=== PATIENT | male | born 1930 | race Caucasian/White ===

== ENCOUNTER 2016-06-19 06:59 | Day surgery (SDC) | payer MEDICARE, OTHER ==
[2016-06-19] MEDS ORDERED: Lactated Ringers 1,000 ML IV SCH (07:15)
[2016-06-19] MEDS ORDERED: Propofol 200 MG/20 ML SDV IV ONE (08:50)
[2016-06-19] MEDS ORDERED: Midazolam 1 MG/ML 2 ML SDV IV ONE (08:50)
[2016-06-19] MEDS ORDERED: Simethicone Drops 40 MG/0.6 ML 30 ML Bottle ONE (09:03)
[2016-06-19 10:24] VITALS: BP 134/69
--- NOTE | 2016-06-19 17:56 | OR ---
DATE OF OPERATION: 06/19/2016 SURGEON: Germán Hudson MD PROCEDURE PERFORMED: Colonoscopy with cold forceps biopsy. PREOPERATIVE DIAGNOSIS: Personal history of colon polyps. POSTOPERATIVE DIAGNOSES: As follows: 1. Prostate nodule. 2. Diffuse diverticulosis. 3. Transverse colon polyp. INDICATIONS FOR PROCEDURE: This is an extremely healthy 85-year-old, white male, with a personal history of colon polyps who presents for followup colonoscopy. He was offered and accepted the same. DESCRIPTION OF OPERATION: After an excellent IV sedation was administered, a digital rectal exam was performed. The patient does have a distinct nodule on the middle of his prostate. It was approximately a cm in diameter; otherwise, the rectal exam was unremarkable. The flexible colonoscope was then inserted and advanced to the cecum. The prep was excellent. The following findings were noted: Ascending colon, moderate diverticulosis. Transverse colon, moderate diverticulosis; and then the distal transverse colon, the patient does have a small polypoid lesion, biopsied with cold biopsy forceps. Descending colon, moderate diverticulosis. Sigmoid, moderate diverticulosis. Rectum, unremarkable. The colon was deflated as the scope was removed. The patient tolerated the procedure well and was taken to the recovery room in good condition. /[id number] RACHEL/ABEL
== END 2016-06-19 10:18 | disposition home or self-care (01) ==
LOC: FB.SDS 06:59
PROVIDERS: ATTEND Surgery
PROC: 0DBL8ZX Excision of Transverse Colon, Via Natural or Artificial Opening Endoscopic, Diagnostic (ICD-10-PCS; principal; 2016-06-19)
DX: D12.3 Benign neoplasm of transverse colon (principal); N40.2 Nodular prostate without lower urinary tract symptoms; K57.30 Diverticulosis of large intestine without perforation or abscess without bleeding; I10 Essential (primary) hypertension; Z79.82 Long term (current) use of aspirin; Z79.899 Other long term (current) drug therapy; Z87.891 Personal history of nicotine dependence
CPT/HCPCS: 00902; 45380; 88305; A9270; J2250; J2704; J7120

== ENCOUNTER 2017-10-14 09:36 | Emergency (ER) | payer MEDICARE, OTHER ==
[2017-10-14] MEDS ORDERED: Sodium Chloride 0.9% 10 ML Syringe FLUSH PRN (10:05)
[2017-10-14] MEDS ORDERED: fentaNYL 100 MCG/2 ML SDV IVPUSH ONE ×2 (10:09→10:45)
--- NOTE | 2017-10-14 10:15 | EDM.PDOC ---
ED HPI GENERAL MEDICAL PROBLEM - General Chief Complaint: Lower Extremity Injury/Pain Stated Complaint: RT ANKLE Time Seen by Provider: 10/14/17 10:03 Source of Information: Reports: Patient History Limitations: Reports: No Limitations - History of Present Illness INITIAL COMMENTS - FREE TEXT/NARRATIVE: Patient lost his balance while dressing this morning, twisted right ankle, complains of ankle pain. Last meal 0740 today. Onset: Today, Sudden Duration: Hour(s): (1) Location: Reports: Lower Extremity, Right Severity: Moderate R ankle Pain Score (Numeric/FACES): 9 - Related Data Allergies Allergy/AdvReac Type Severity Reaction Status Date / Time No Known Allergies Allergy Verified 10/14/17 11:11 Home Meds: Home Meds Aspirin 81 mg PO DAILY 06/18/16 [History] Calcium Carbonate/Vitamin D3 [Calcium Carb 500 MG] 1 ea PO DAILY 06/18/16 [ History] Lisinopril/Hydrochlorothiazide [Lisinopril-Hctz 20-12.5 mg Tab] 1 ea PO DAILY [History] Multivitamin with Minerals [Multiple Vitamin] 1 ea PO DAILY 06/18/16 [History] Lactobacillus Combination No.4 [Probiotic] 1 each PO DAILY 10/14/17 [History] Latanoprost 1 drop EYEBOTH BEDTIME 10/14/17 [History] Past Medical History HEENT History: Reports: Impaired Vision Cardiovascular History: Reports: Hypertension. Denies: CAD Respiratory History: Reports: None Gastrointestinal History: Reports: Colon Polyp Genitourinary History: Reports: None Musculoskeletal History: Reports: None Neurological History: Reports: None Psychiatric History: Reports: None Endocrine/Metabolic History: Reports: None Hematologic History: Reports: None Immunologic History: Reports: None Oncologic (Cancer) History: Reports: None Dermatologic History: Reports: None - Infectious Disease History Infectious Disease History: Reports: Chicken Pox - Past Surgical History Head Surgeries/Procedures: Reports: None Cardiovascular Surgical History: Reports: None Respiratory Surgical History: Reports: None GI Surgical History: Reports: None, Colonoscopy Female Surgical History: Reports: None Male Surgical History: Reports: None Endocrine Surgical History: Reports: None Neurological Surgical History: Reports: None Musculoskeletal Surgical History: Reports: None Oncologic Surgical History: Reports: None Social & Family History - Family History Family Medical History: Noncontributory - Tobacco Use Smoking Status *Q: Never Smoker - Caffeine Use Caffeine Use: Reports: Coffee Review of Systems - Review of Systems Review Of Systems: ROS reveals no pertinent complaints other than HPI. 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 - Splinting Lower Extremity Splint Site: right ankle Pre-Procedure NV Status: Normal Post-Procedure NV Status: Normal Splint Material: Other (orthoglass) Splint Design: Sugar [place], Other (long leg posterior) Applied & Form Fitted By: Provider Provider Post-Splint Application NV Check: NV Status Normal, Good Position Complications: No EKG INTERPRETATION EKG Date: 10/14/17 Time: 10:36 Rhythm: NSR Rate (Beats/Min): [address] [employer] [place]: Normal P-Wave: Present QRS: Normal ST-T: Normal QT: Normal Course - Vital Signs Last Recorded V/S: Last Vital Signs Temp 36.3 C 10/14/17 09:36 Pulse 73 10/14/17 09:36 Resp 18 10/14/17 10:05 BP 155/78 H 10/14/17 10:05 Pulse Ox 98 10/14/17 10:05 - Orders/Labs/Meds Orders: Active Orders 24 hr Category Date Time Status EKG Documentation Completion [RC] ASDIRECTED Care 10/14/17 10:04 Active Ankle 2V Rt [CR] Stat Exams 10/14/17 09:49 Taken Ankle 2V Rt [CR] Stat Exams 10/14/17 10:52 Taken Sodium Chloride 0.9% [Saline Flush] Med 10/14/17 10:05 Active 10 ml FLUSH ASDIRECTED PRN Saline Lock Insert [OM.PC] Routine Oth 10/14/17 10:05 Ordered EKG 12 Lead [EK] Routine Ther 10/14/17 10:03 Ordered Medication Orders Sodium Chloride (Saline Flush) 10 ml FLUSH ASDIRECTED PRN PRN Reason: Keep Vein Open Labs: Laboratory Tests 10/14/17 10/14/17 10/14/17 Range/Units 10:25 10:25 10:25 WBC 10.9 (4.5-12.0) X10-3/uL RBC 4.42 (4.30-5.75) x10(6)uL Hgb 14.7 (11.5-15.5) g/dL Hct 41.3 (30.0-51.3) % MCV 93.4 (80-96) fL MCH 33.2 (27.7-33.6) pg MCHC 35.5 H (32.2-35.4) g/dL RDW 12.1 (11.5-15.5) % Plt Count 188 (125-369) X10(3)uL MPV 8.8 (7.4-10.4) fL Add Manual Diff Yes Neutrophils % (Manual) 76 (46-82) % Lymphocytes % (Manual) 17 (13-37) % Monocytes % (Manual) 6 (4-12) % Eosinophils % (Manual) 1 (0-5) % PT 12.1 H (8.7-11.1) INR 1.25 H (0.89-1.13) Sodium 134 L (135-145) mmol/L Potassium 3.8 (3.5-5.3) mmol/L Chloride 103 (100-110) mmol/L Carbon Dioxide 27 (21-32) mmol/L BUN 21 H (7-18) mg/dL Creatinine 1.3 (0.70-1.30) mg/dL Est Cr Clr Drug Dosing TNP Estimated GFR (MDRD) 52 L (>60) BUN/Creatinine Ratio 16.2 (9-20) Glucose 133 H (80-116) mg/dL Calcium 9.2 (8.6-10.2) mg/dL Meds: Medications Generic Name Dose Route Start Last Admin Trade Name Freq PRN Reason Stop Dose Admin Sodium Chloride 10 ml 10/14/17 10:05 Saline Flush FLUSH ASDIRECTED PRN Keep Vein Open Discontinued Medications Generic Name Dose Route Start Last Admin Trade Name Freq PRN Reason Stop Dose Admin Fentanyl 50 mcg 10/14/17 10:09 Sublimaze IVPUSH 10/14/17 10:10 ONETIME ONE - Radiology Interpretation Free Text/Narrative:: Right Ankle XR: Bimalleolar fracture-dislocation (per Dr. Crawford). Post reduction Right Ankle XR: Successful reduction of dislocation, bimalleolar (possibly trimalleolar) fracture present (per Dr. Crawford). - Re-Assessments/Exams Free Text/Narrative Re-Assessment/Exam: 10/14/17 11:[address] Fair ([facility] surgeon), he reviewed XRays and will see patient in clinic this afternoon. Departure - Departure Time of Disposition: 11:44 Disposition: Home, Self-Care 01 Condition: Good Clinical Impression: Bimalleolar fracture of left ankle Qualifiers: Encounter type: initial encounter Fracture type: closed Qualified Code(s): S82.842A - Displaced bimalleolar fracture of left lower leg, initial encounter for closed fracture Dislocation of ankle, left, closed Qualifiers: Encounter type: initial encounter Qualified Code(s): S93.05XA - Dislocation of left ankle joint, initial encounter - Discharge Information *PRESCRIPTION DRUG MONITORING PROGRAM REVIEWED*: No *COPY OF PRESCRIPTION DRUG MONITORING REPORT IN PATIENT JAVIER: Not Applicable Instructions: Ankle Dislocation, [id number], Ankle Fracture, Closed Reduction for Ankle Fracture or Dislocation, Care After Referrals: Jean Farrar MD [Primary Care Provider] - Bart Fair MD [Ordering Only Provider] - Forms: ED Department Discharge Additional Instructions: Follow up with Dr. Fair @ [facility] at 1:15 pm today. Do not eat or drink anything en route to clinic. - My Orders Last 24 Hours: My Active Orders 10/14/17 09:49 Ankle 2V Rt [CR] Stat 10/14/17 10:03 EKG 12 Lead [EK] Routine 10/14/17 10:04 EKG Documentation Completion [RC] ASDIRECTED 10/14/17 10:05 Sodium Chloride 0.9% [Saline Flush] 10 ml FLUSH ASDIRECTED PRN Saline Lock Insert [OM.PC] Routine 10/14/17 10:52 Ankle 2V Rt [CR] Stat - Assessment/Plan Last 24 Hours: My Active Orders 10/14/17 09:49 Ankle 2V Rt [CR] Stat 10/14/17 10:03 EKG 12 Lead [EK] Routine 10/14/17 10:04 EKG Documentation Completion [RC] ASDIRECTED 10/14/17 10:05 Sodium Chloride 0.9% [Saline Flush] 10 ml FLUSH ASDIRECTED PRN Saline Lock Insert [OM.PC] Routine 10/14/17 10:52 Ankle 2V Rt [CR] Stat
[2017-10-14] MEDS ORDERED: Propofol 200 MG/20 ML SDV IV ONE (10:30)
--- NOTE | 2017-10-14 14:50 | CR ---
INDICATION: Twisted, pain and swelling. trRIGHT ANKLE: Three views of the right ankle were obtained and revealed a trimalleolar fracture with subluxation and angulation. The ankle mortise is distorted. The talus is inverted and laterally offset with respect to the tibia and fibula with the tibia and fibular proximal fracture fragments anteriorly offset additionally. The posterior malleolus appears to be intact. IMPRESSION: trimalleolar fracture subluxation with fairly severe deformity. Offset and angulation of fracture fragments is noted. MTDD
[2017-10-14 19:21] VITALS: BP 155/74
--- NOTE | 2017-10-15 08:48 | CR ---
INDICATION: Post reduction right ankle fracture. RIGHT ANKLE: Frontal and lateral views of the right ankle revealed an appearance of a trimalleolar fracture with significant degree of reduction of the fracture fragments and restitution, for the most part, of the ankle mortise , although there is some widening of the medial ankle mortise space. Slight separation and minimal angulation are noted at fracture fragments of the fibula with lateral angulation minimally of the distal fracture fragment. Slight separation is noted at the medial malleolar fracture fragments, mostly anteriorly. The posterior malleolar fracture fragment is slightly posteriorly deviated with separation of a small portion of the tibial joint surface posteriorly of approximately 7 mm, and 1-2 mm cranial overriding of the posterior malleolar fracture fragment may also be present. Detail is somewhat limited by overlying cast. IMPRESSION: Reduction of much of the deformity present in this trimalleolar fracture patient. Soft tissue swelling is again noted to a greater extent laterally. MTDD
== END 2017-10-14 12:20 | disposition home or self-care (01) ==
LOC: FB.ED 09:36
DX: S82.851A Displaced trimalleolar fracture of right lower leg, initial encounter for closed fracture (principal); S82.841A Displaced bimalleolar fracture of right lower leg, initial encounter for closed fracture; I10 Essential (primary) hypertension; Z79.82 Long term (current) use of aspirin; Z79.899 Other long term (current) drug therapy; X50.1XXA Overexertion from prolonged static or awkward postures, initial encounter
CPT/HCPCS: 01462; 27810; 27840; 29515; 36415; 73600; 80048; 85025; 85610; 93005; 96374; 96375; 99283; 99284; J2704; J3010; 29505

== ENCOUNTER 2017-11-03 13:19 | Inpatient (IN) | payer MEDICARE, OTHER ==
[2017-11-03] MEDS ORDERED: Polyethylene Glycol 3350 Powder 17 GM Packet PO PRN (17:09)
[2017-11-03] MEDS ORDERED: Calcium Carbonate 500 MG Tab.Chew PO PRN (17:09)
--- NOTE | 2017-11-03 18:32 | PCM.HP ---
H&P History of Present Illness - General Date of Service: 11/03/17 Admit Problem/Dx: Admission Diagnosis/Problem Admission Diagnosis/Problem Trimalleolar fracture of left ankle Source of Information: Patient, Old Records History Limitations: Reports: No Limitations - History of Present Illness Initial Comments - Free Text/Narative: This is an 87-year-old male patient in 3 weeks ago was getting ready to go overnight exam. He turned and fell down on his right ankle. He fractured it was transferred to [facility] and had it repaired. He is back for rehabilitation. He has no other concerns other than occasional cough. He has history of heart murmur but no chest pain, shortness of breath, leg swelling. - Related Data Allergies/Adverse Reactions: Allergies Allergy/AdvReac Type Severity Reaction Status Date / Time No Known Allergies Allergy Verified 11/03/17 17:28 Home Medications: Home Meds Aspirin 81 mg PO DAILY 06/18/16 [History] Lisinopril/Hydrochlorothiazide [Lisinopril-Hctz 20-12.5 mg Tab] 1 ea PO DAILY [History] Latanoprost 1 drop EYEBOTH BEDTIME 10/14/17 [History] Acetaminophen [Tylenol] 650 mg PO QID 11/03/17 [History] Calcium Carbonate [Tums] 500 mg PO QID PRN 11/03/17 [History] Enoxaparin Sodium [Lovenox] 40 mg SUBCUT DAILY 11/03/17 [History] Omeprazole 20 mg PO BIDAC 11/03/17 [History] Polyethylene Glycol 3350 [MiraLAX] 17 gm PO DAILY PRN 11/03/17 [History] Sennosides/Docusate Sodium [Senna-S] 1 tab PO BID PRN 11/03/17 [History] oxyCODONE 5 mg PO Q4H PRN 11/03/17 [History] Past Medical History HEENT History: Reports: Glaucoma, Impaired Vision Cardiovascular History: Reports: Hypertension Respiratory History: Reports: None Gastrointestinal History: Reports: Colon Polyp Genitourinary History: Reports: None Musculoskeletal History: Reports: Fracture Other Musculoskeletal History: right [id number] Neurological History: Reports: None Psychiatric History: Reports: None Endocrine/Metabolic History: Reports: None Hematologic History: Reports: None Immunologic History: Reports: None Oncologic (Cancer) History: Reports: None Dermatologic History: Reports: None - Infectious Disease History Infectious Disease History: Reports: Chicken Pox, Measles, Mumps - Past Surgical History Head Surgeries/Procedures: Reports: None Cardiovascular Surgical History: Reports: None Respiratory Surgical History: Reports: None GI Surgical History: Reports: None, Colonoscopy Male Surgical History: Reports: None Endocrine Surgical History: Reports: None Neurological Surgical History: Reports: None Musculoskeletal Surgical History: Reports: Joint Replacement Other Musculoskeletal Surgeries/Procedures:: of right ankle 8- Oncologic Surgical History: Reports: None Social & Family History - Family History Family Medical History: Noncontributory - Tobacco Use Smoking Status *Q: Never Smoker Second Hand Smoke Exposure: No - Caffeine Use Caffeine Use: Reports: Coffee Other Caffeine Use: 3 cups - Recreational Drug Use Recreational Drug Use: No H&P Review of Systems - Review of Systems: Review Of Systems: See Below General: Reports: No Symptoms HEENT: Reports: No Symptoms Pulmonary: Reports: Cough. Denies: Sputum Cardiovascular: Reports: No Symptoms Gastrointestinal: Reports: No Symptoms Genitourinary: Reports: No Symptoms Musculoskeletal: Reports: Other (Pain right ankle controlled) Skin: Reports: No Symptoms Psychiatric: Reports: No Symptoms Neurological: Reports: No Symptoms Hematologic/Lymphatic: Reports: No Symptoms Immunologic: Reports: No Symptoms Exam - Exam Exam: See Below - Vital Signs Vital Signs: Last Vital Signs Temp 98.1 F 11/03/17 16:30 Pulse 96 11/03/17 16:30 Resp 18 11/03/17 16:30 BP 143/70 H 11/03/17 16:30 Pulse Ox 96 11/03/17 16:30 - Exam General: Alert, Oriented, Cooperative HEENT: Hearing Intact (With Hearing aid), Mucosa Moist & [place], Posterior Pharynx Clear Neck: Supple, Trachea Midline. No: Lymphadenopathy Lungs: Clear to Auscultation, Normal Respiratory Effort Cardiovascular: Regular Rate, Regular Rhythm, Systolic Murmur GI/Abdominal Exam: Normal Bowel Sounds, Soft, Non-Tender, No Distention, No Abnormal Bruit, No Mass Extremities: No Pedal Edema (Left leg), Other (Right leg has a splint) Skin: Warm, Dry, Cool Neurological: Normal Speech, Normal Tone Neuro Extensive - Mental Status: Alert, Oriented x3, Normal Mood/Affect, Normal Cognition Psychiatric: Alert, Normal Affect, Normal Mood - Problem List (1) Closed trimalleolar fracture SNOMED Code(s): 2948888 ICD Code: S82.853A - DISPLACED TRIMALLEOLAR FRACTURE OF UNSP LOWER LEG, INIT Status: Acute Current Visit: Yes Problem List Initiated/Reviewed/Updated: Yes Orders Last 24hrs: Active Orders 24 hr Category Date Time Status Patient Status [ADT] Routine ADT 11/03/17 17:10 Active Height and Weight [RC] .MON Care 11/03/17 17:10 Active Oxygen Therapy [RC] PRN Care 11/03/17 17:10 Active Up With Assistance [RC] ASDIRECTED Care 11/03/17 17:10 Active Vital Signs [RC] 08 Care 11/03/17 17:10 Active OT Evaluation and Treatment [CONS] Routine Cons 11/03/17 17:10 Active PT Evaluation and Treatment [CONS] Routine Cons 11/03/17 17:10 Active Regular Diet [DIET] Diet 11/03/17 Dinner Active Acetaminophen [Tylenol] Med 11/03/17 21:00 Active 650 mg PO QID Aspirin Med 11/04/17 09:00 Active 81 mg PO DAILY Calcium Carbonate [Tums] Med 11/03/17 17:09 Active 500 mg PO QID PRN Docusate Sodium/Sennosides [Senna Plus] Med 11/03/17 17:09 Active 1 tab PO BID PRN Enoxaparin [Lovenox] Med 11/04/17 09:00 Active 40 mg SUBCUT DAILY Hydrochlorothiazide/Lisinopril [Lisinopril/HCTZ 20-12.5 Med 11/04/17 09:00 Active MG] 1 tab PO DAILY Latanoprost [Xalatan 0.005% Ophth Soln] Med 11/03/17 21:00 Active 0 ml EYEBOTH BEDTIME Pantoprazole [ProTONIX] Med 11/03/17 17:30 Active 40 mg PO BIDAC Polyethylene Glycol 3350 [MiraLAX] Med 11/03/17 17:09 Active 17 gm PO DAILY PRN oxyCODONE Med 11/03/17 17:09 Active 5 mg PO Q4H PRN Resuscitation Status Routine Resus Stat 11/03/17 17:10 Ordered Medication Orders Acetaminophen (Tylenol) 650 mg PO QID COLTEN Aspirin (Aspirin) 81 mg PO DAILY COLTEN Calcium Carbonate/Glycine (Tums) 500 mg PO QID PRN PRN Reason: Indigestion Enoxaparin Sodium (Lovenox) 40 mg SUBCUT DAILY COLTEN Lisinopril/HCTZ (Lisinopril/Hctz 20-12.5 Mg) 1 tab PO DAILY COLTEN Latanoprost (Xalatan 0.005% Ophth Soln) 0 ml EYEBOTH BEDTIME COLTEN Oxycodone HCl (Oxycodone) 5 mg PO Q4H PRN PRN Reason: MODERATE PAIN Pantoprazole Sodium (Protonix) 40 mg PO BIDAC COLTEN Polyethylene Glycol (Miralax) 17 gm PO DAILY PRN PRN Reason: Constipation Senna/Docusate Sodium (Senna Plus) 1 tab PO BID PRN PRN Reason: Constipation Assessment/Plan Comment:: 1. Admit to swing bed for rehabilitation. 2. Regular diet 3. PT/OT and social service to follow. 4. Continue his regular medications. 5. Full code per patient 6. Right foot nonweightbearing.
[2017-11-03] MEDS: Pantoprazole 40 MG Tab.CR PO SCH (19:39)
[2017-11-03] MEDS ORDERED: Latanoprost 0.005% Ophth Soln 2.5 ML Bottle EYEBOTH SCH (21:00)
[2017-11-03] MEDS: Acetaminophen 325 MG Tab PO SCH (21:27)
[2017-11-04] MEDS: Pantoprazole 40 MG Tab.CR PO SCH ×2 (06:40→17:17)
[2017-11-04] MEDS: Enoxaparin 40 MG/0.4 ML Syringe SUBCUT SCH (08:29)
[2017-11-04] MEDS: Aspirin 81 MG Tab.Chew PO SCH (08:29)
[2017-11-04] MEDS: Hydrochlorothiazide/Lisinopril 12.5-20 MG Tab PO SCH (08:29)
[2017-11-04] MEDS ORDERED: Calcium Carbonate 500 MG Tab.Chew PO PRN (08:32)
[2017-11-04] MEDS: Acetaminophen 325 MG Tab PO SCH ×4 (10:00→20:52)
[2017-11-04] MEDS: Latanoprost 0.005% Ophth Soln 2.5 ML Bottle EYEBOTH SCH (21:02)
[2017-11-05] MEDS: Pantoprazole 40 MG Tab.CR PO SCH ×3 (06:07→17:27)
[2017-11-05] MEDS: oxyCODONE 5 MG Tab PO PRN ×2 (08:39→22:18)
[2017-11-05] MEDS: Acetaminophen 325 MG Tab PO SCH ×4 (08:39→22:17)
[2017-11-05] MEDS: Aspirin 81 MG Tab.Chew PO SCH (10:16)
[2017-11-05] MEDS: Enoxaparin 40 MG/0.4 ML Syringe SUBCUT SCH (10:16)
[2017-11-05] MEDS: Hydrochlorothiazide/Lisinopril 12.5-20 MG Tab PO SCH (10:16)
[2017-11-05] MEDS: Gabapentin 100 MG Cap PO SCH ×2 (13:59→22:17)
[2017-11-05] MEDS: Latanoprost 0.005% Ophth Soln 2.5 ML Bottle EYEBOTH SCH (22:17)
[2017-11-06] MEDS: Pantoprazole 40 MG Tab.CR PO SCH ×2 (06:49→17:02)
[2017-11-06] MEDS: Aspirin 81 MG Tab.Chew PO SCH (09:11)
[2017-11-06] MEDS: Hydrochlorothiazide/Lisinopril 12.5-20 MG Tab PO SCH (09:12)
[2017-11-06] MEDS: Enoxaparin 40 MG/0.4 ML Syringe SUBCUT SCH (09:16)
[2017-11-06] MEDS: Acetaminophen 325 MG Tab PO SCH ×4 (09:18→21:05)
[2017-11-06] MEDS: Gabapentin 100 MG Cap PO SCH ×2 (09:20→21:04)
[2017-11-06] MEDS: Latanoprost 0.005% Ophth Soln 2.5 ML Bottle EYEBOTH SCH (21:05)
[2017-11-06] MEDS: oxyCODONE 5 MG Tab PO PRN (22:46)
[2017-11-07] MEDS: Pantoprazole 40 MG Tab.CR PO SCH ×2 (07:10→17:34)
[2017-11-07] MEDS: Hydrochlorothiazide/Lisinopril 12.5-20 MG Tab PO SCH (08:11)
[2017-11-07] MEDS: Aspirin 81 MG Tab.Chew PO SCH (08:11)
[2017-11-07] MEDS: Enoxaparin 40 MG/0.4 ML Syringe SUBCUT SCH (08:12)
[2017-11-07] MEDS: Acetaminophen 325 MG Tab PO SCH ×3 (08:12→20:21)
[2017-11-07] MEDS: Gabapentin 100 MG Cap PO SCH (08:12)
--- NOTE | 2017-11-07 14:47 | PN ---
DATE SEEN: 11/07/2017 HISTORY: Mr. Foote is an 87-year-old, healthy gentleman with a history of hypertension. He sustained a fall at his residence on 10/14/2017. He had closed reduction of a trimalleolar fracture and casting. He was scheduled for ORIF, however, developed skin ulcers beneath the cast and had to have additional healing time before surgery. Mr. Foote underwent ORIF of the ankle fracture on 10/29/2017 at [facility]. He has been admitted to [facility] for further recuperation on 11/03/2017. He is doing satisfactorily. He remains nonweightbearing on that ankle that will be for a period of 6-12 weeks. REVIEW OF SYSTEMS: He states he is feeling comfortable. He has minimal discomfort in the ankle, except he states that it is burning on each side beneath his splint at the malleolar area and slightly superior. He has no numbness or tingling to the toes. No fever, chills, cough, dyspnea, chest pain, abdominal pain, diarrhea, swelling, or skin rash. PHYSICAL EXAMINATION: GENERAL: He is alert, comfortable, and a good historian. He looks younger than his years. VITAL SIGNS: Blood pressure 129/72, pulse 71, respirations normal, temp 97.8, O2 saturation 96% on room air. SKIN: Shows no rash. LUNGS: Clear. HEART: Regular. ABDOMEN: Soft. EXTREMITIES: Wrap and splint in place, right ankle. Left lower extremity shows no edema. Toes have intact sensation and are pink in color. ASSESSMENT: Open reduction and internal fixation, right ankle fracture, now approximately 10 days out with burning sensation over the skin of his ankle. PLAN: The wrap and splint are removed today, revealing clean, healing sutured incisions on each side of his right ankle. There is no purulence, erythema, drainage, and no breakdown of the skin. His ankle was then redressed with 4x4s over the sutures, cast padding followed by Kerlix, and re-application of his original molded plaster splint with Ivan wrap over the top. He will continue his current physical therapy and remain nonweightbearing. He has a routinely scheduled followup orthopedic appointment next week. Plans are to return to discharge when he is satisfactorily recovered for self-care. /[id number] JOSE/ABEL
[2017-11-07] MEDS: Acetaminophen/Codeine 300-30 MG Tab PO PRN ×2 (18:25→22:56)
[2017-11-07] MEDS: Latanoprost 0.005% Ophth Soln 2.5 ML Bottle EYEBOTH SCH (20:22)
[2017-11-08] MEDS: Acetaminophen/Codeine 300-30 MG Tab PO PRN ×3 (04:08→12:35)
[2017-11-08] MEDS: Pantoprazole 40 MG Tab.CR PO SCH ×2 (06:44→17:14)
[2017-11-08] MEDS: Hydrochlorothiazide/Lisinopril 12.5-20 MG Tab PO SCH (08:30)
[2017-11-08] MEDS: Aspirin 81 MG Tab.Chew PO SCH (08:30)
[2017-11-08] MEDS: Enoxaparin 40 MG/0.4 ML Syringe SUBCUT SCH (08:30)
[2017-11-08] MEDS: Acetaminophen 325 MG Tab PO SCH ×3 (08:31→21:03)
[2017-11-08] MEDS: oxyCODONE 5 MG Tab PO PRN ×2 (16:11→21:04)
[2017-11-08] MEDS: hydrOXYzine HCl 25 MG Tab PO PRN (21:04)
[2017-11-08] MEDS: Latanoprost 0.005% Ophth Soln 2.5 ML Bottle EYEBOTH SCH (21:06)
[2017-11-09] MEDS: Pantoprazole 40 MG Tab.CR PO SCH ×2 (06:41→17:29)
[2017-11-09] MEDS: oxyCODONE 5 MG Tab PO PRN ×4 (08:04→22:20)
[2017-11-09] MEDS: Acetaminophen 325 MG Tab PO SCH ×3 (08:38→22:20)
[2017-11-09] MEDS: Enoxaparin 40 MG/0.4 ML Syringe SUBCUT SCH (08:38)
[2017-11-09] MEDS: Aspirin 81 MG Tab.Chew PO SCH (08:39)
[2017-11-09] MEDS: Hydrochlorothiazide/Lisinopril 12.5-20 MG Tab PO SCH (08:39)
[2017-11-09] MEDS: hydrOXYzine HCl 25 MG Tab PO PRN (22:20)
[2017-11-09] MEDS: Latanoprost 0.005% Ophth Soln 2.5 ML Bottle EYEBOTH SCH (22:21)
[2017-11-10] MEDS: Pantoprazole 40 MG Tab.CR PO SCH ×2 (06:46→17:42)
[2017-11-10] MEDS: oxyCODONE 5 MG Tab PO PRN ×4 (08:13→22:57)
[2017-11-10] MEDS: Hydrochlorothiazide/Lisinopril 12.5-20 MG Tab PO SCH (08:14)
[2017-11-10] MEDS: Enoxaparin 40 MG/0.4 ML Syringe SUBCUT SCH (08:15)
[2017-11-10] MEDS: Acetaminophen 325 MG Tab PO SCH ×3 (08:15→21:24)
[2017-11-10] MEDS: Aspirin 81 MG Tab.Chew PO SCH (08:15)
[2017-11-10] MEDS: Latanoprost 0.005% Ophth Soln 2.5 ML Bottle EYEBOTH SCH (21:24)
[2017-11-11] MEDS: Pantoprazole 40 MG Tab.CR PO SCH (07:33)
[2017-11-11] MEDS: Aspirin 81 MG Tab.Chew PO SCH (08:59)
[2017-11-11] MEDS: Hydrochlorothiazide/Lisinopril 12.5-20 MG Tab PO SCH (08:59)
[2017-11-11] MEDS: Acetaminophen 325 MG Tab PO SCH (08:59)
[2017-11-11 09:00] VITALS: BP 116/67
[2017-11-11] MEDS: oxyCODONE 5 MG Tab PO PRN ×2 (09:04→13:31)
--- NOTE | 2017-11-11 12:50 | DISCH ---
DISCHARGE DATE: 11/11/2017 PRIMARY FINAL DIAGNOSIS: Trimalleolar fracture of right ankle. OTHER DIAGNOSES: Immobility secondary to above, ankle pain, hypertension, and glaucoma. OPERATIONS: The patient underwent ORIF of the right ankle at [facility] in [place] on 10/29/2017. HOSPITAL COURSE: Mr. Foote is an 87-year-old healthy man who fell and fractured his ankle with a trimalleolar fracture dislocation, back on 10/14/2017. He had closed reduction and casting with planned later surgical repair. This was delayed slightly because of skin blistering inside the cast. On October 29, 2017, he underwent ORIF with an uncomplicated course intraoperatively. Postoperatively, he had significant pain and was completely nonweightbearing. He was discharged from [facility] in [place] to swing bed at [facility] in [place] on 11/03/2017. Swing bed course was satisfactory. He had a trial of decrease from oxycodone down to Tylenol with codeine and that was unsuccessful because of pain in the ankle and concern for local skin trauma. His initial splint was unwrapped. The skin was inspected revealing healthy incisions and rewrapped and replaced into his original splint. He achieved adequate pain control with oxycodone, but required significant assistance because of his nonweightbearing status on the right ankle. By 11/11/2017, he was considered well enough for discharge to home with Home Health Care. He was discharged in good condition. DISCHARGE MEDICATIONS: To take medications as follows; 1. Oxycodone 5 to 10 mg every 4 hours p.r.n. pain. 2. Tylenol 650 mg q.i.d. p.r.n. 3. Senokot S one b.i.d. 4. MiraLAX 17 grams daily p.r.n. constipation. 5. Lisinopril/hydrochlorothiazide 20-12.5 one tab daily. 6. Latanoprost one drop OU at bedtime. 7. Calcium carbonate. 8. Tums 500 mg q.i.d. 9. Aspirin 81 mg daily. The patient received IV Lovenox for postoperative DVT prophylaxis. His last dose was scheduled on the day of discharge. Today is 11/11/2017, so he will not require any further dosage. DISCHARGE INSTRUCTIONS: As mentioned, the patient requires Home Health Care following because of his ambulatory difficulty, nonweightbearing status, and elderly age. He has orthopedic followup scheduled in [place] for 11/14/2017. He is to follow up with Dr. Farrar for routine cares and call should there be questions or problems prior to that time. /[id number] JOSE/ABEL
== END 2017-11-11 13:47 | disposition home health service (06) | DRG 561 ==
LOC: FB.MS 15:43
PROVIDERS: ADMIT Family Medicine; ATTEND Family Medicine
DX: S82.852D Displaced trimalleolar fracture of left lower leg, subsequent encounter for closed fracture with routine healing (principal); I10 Essential (primary) hypertension; H40.9 Unspecified glaucoma; Z79.82 Long term (current) use of aspirin; R26.2 Difficulty in walking, not elsewhere classified; W19.XXXD Unspecified fall, subsequent encounter
CPT/HCPCS: 97116-GP; 97161-GP; 97165-GO; 97530-GO; 97530-GP; A9270-GY; J1650